=== PATIENT | female | born 1995 | race Caucasian/White ===

== ENCOUNTER → 2017-11-23 14:00 | Outpatient (CLI) | payer MEDICAID, SELFPAY ==
[2017-11-23 16:51] LABS: Group B Strep DNA By PCR Negative (Negative); Internal Control PASS; Probe Check PASS; Specimen Processing Control PASS
== END ==
PROVIDERS: Visit Provider Obstetrics & Gynecology
DX: Z36.85 Encounter for antenatal screening for Streptococcus B (principal)
CPT/HCPCS: 87081; 87653

== ENCOUNTER → 2017-11-27 17:17 | Outpatient (CLI) | payer MEDICAID, SELFPAY ==
[2017-11-27 18:02] LABS: Anion Gap 6 (5-15); BUN 8 mg/dL (7-18); BUN/Creat Ratio 14.2 RATIO (10-20); Calcium,Total 8.7 mg/dL (8.5-10.1); Chloride 106 mmol/L (98-107); Creatinine, Serum 0.56 mg/dL (0.55-1.02); EST Glomerular Filtration Rate 140 mL/min (>60); Est Glom Filt Rate - Afr Amer 169 mL/min (>60); Glucose 92 mg/dL (74-106); Potassium 4.1 mmol/L (3.5-5.1); Sodium Level 138 mmol/L (136-145)
== END ==
PROVIDERS: Visit Provider Obstetrics & Gynecology
DX: O99.89 Other specified diseases and conditions complicating pregnancy, childbirth and the puerperium (principal); R42 Dizziness and giddiness; Z3A.00 Weeks of gestation of pregnancy not specified
CPT/HCPCS: 80048

== ENCOUNTER 2017-12-12 17:20 | Outpatient (CLI) | payer MEDICAID, SELFPAY ==
[2017-12-12 17:42] VITALS: BMI 36.4
--- NOTE | 2017-12-13 07:52 | OB.TRI.NOTE ---
History of Present Illness Date of Service: 12/12/17 Was patient seen by the physician?: No Reason For Visit: FALL Date of Service: 12/12/17 Final TAMMY: 12/25/17 Final TAMMY Source: US <20 weeks Gestational age: 38 Weeks and 2 Days History of Present Illness: Had fall early today with resultant minor injury to abdomen. Some cramping. Good movmeent. No bleeding or signs of SROM. Home Medications Medication Instructions Recorded Pnv95/Ferrous Fumarate/FA 1 each PO DAILY 07/15/16 [ Formula] RX: Albuterol Inhaler [Ventolin 2 puff INHALATION PRN PRN 12/05/16 Hfa] Allergies No Known Allergies Allergy (Verified 07/15/16 22:26) Physical Exam General: Alert, Oriented x3, Cooperative, No apparent distress Cardiovascular: Regular rate, Regular Rhythm Lungs: Clear to auscultation, Normal air movement Abdomen: Soft, Non Tender, Non-Distended, Gravid, Appropriate for Gestational Age Extremities:: No edema Estimated gestational size: Appropriate for gestational size Presentation: Cephalic NST - FHR Rate Baby A Baseline: 130s Variability:: Moderate Accelerations:: 15 x 15 Decelerations:: None NST Reactive:: Yes, Appropriate for gestational age FHR Category:: Category I Uterine Activity:: none Impression/Plan Observed over 2 + hours with no signs of labor. NST reassuring. Warnings given. Will f/u in office as scheduled.
== END 2017-12-12 19:55 | disposition home or self-care (01) ==
LOC: WPOUT 17:26 → WP 17:27
PROVIDERS: Visit Provider Obstetrics & Gynecology
DX: O9A.213 Injury, poisoning and certain other consequences of external causes complicating pregnancy, third trimester (principal); S39.91XA Unspecified injury of abdomen, initial encounter; W19.XXXA Unspecified fall, initial encounter; Z3A.38 38 weeks gestation of pregnancy
CPT/HCPCS: 59025; 59050; 99218; G0378

== ENCOUNTER 2017-12-21 07:00 | Inpatient (IN) | payer MEDICAID, SELFPAY ==
[2017-12-21] VITALS (13 sets, daily range): BP systolic 94–113; BP diastolic 44–68; PULSE 70–100; RESP 16–18; TEMP 35.9–37; O2SAT 96–100; BMI 36.3
[2017-12-21] MEDS: Lactated Ringers 1,000 ML 50 ML IV ×2 (07:40→10:12)
--- NOTE | 2017-12-21 07:40 | NURSING ---
Tripped on car seat and fell on car seat
[2017-12-21 07:58] LABS: Hemoglobin 11.5 g/dl (12.0-15.0); Mean Corp Hgb Conc 33.8 g/gl (32-36); Mean Corpuscular Hgb 31.9 pg (27.0-32.0); Mean Corpuscular Volume 94.2 fL (81-99); Mean Platelet Vol. 9.4 fl (6.2-12.0); Platelet Count 235 K/mm3 (150-450); RBC Distribution Width CV 13.3 % (11.6-14.6); RBC Distribution Width SD 45.8 fl (35.1-43.9); Red Blood Count 3.61 M/mm3 (4.2-5.4); Scan Indicated on CBC? Y/N NO; White Blood Count 7.7 K/mm3 (4.4-11.0)
[2017-12-21] MEDS: Oxytocin 30 units/NS 500 ml 30 UNITS/500 ML IV.SOLN IV (08:08)
[2017-12-21 10:09] LABS: Prothrombin Time (Protime)PT. 13.2 SECONDS (11.7-14.9)
[2017-12-21] MEDS: 0.9% Saline Lock 10 ML Syringe IV ×2 (10:13→18:55)
[2017-12-21] MEDS: Terbutaline 1 MG/ML Vial 0.25 MG SC (14:27)
[2017-12-21] MEDS: Sodium Citrate/Citric Acid 30 ML UDC PO (15:29)
[2017-12-21] MEDS: Cefazolin 2 GM in 0.9% Normal Saline 100 ML IV (15:31)
[2017-12-21] MEDS: Oxytocin 30 units/NS 500 ml 30 UNITS/500 ML IV.SOLN 167 UNITS IV (16:35)
--- NOTE | 2017-12-21 17:14 | PCM.IMED.CSR ---
S-Zynzdiz-Kkxyzjumh PostOp Date of Procedure: 12/21/17 Primary Surgeon/Physician: Marleny Miguel accounting analyst: Sandra Hitchcock Pre-op Diagnosis: Breech Post-Op Diagnosis: Breech Surgery/Procedure Performed: Primary low transverse Section Description of Surgical Findings:: Normal uterus and tubes Estimated Blood Loss: 750 mL Specimens Removed: placenta Drain: Herbert to straight drain Type of Anesthesia: Spinal - Admit VTE Documentation VTE Present on Admission: No VTE Mechan Device Prophylaxis: SCD's VTE Pharm Prophylaxis ordered?: No
--- NOTE | 2017-12-21 17:17 | OP.PN_ITS ---
B-Duclptf-Ygnjbyaox PostOp Date of Procedure: 12/21/17 Primary Surgeon/Physician: Marleny Miguel electrician refinery: Sandra Hitchcock Pre-op Diagnosis: Breech Post-Op Diagnosis: Breech Surgery/Procedure Performed: Primary low transverse Section Description of Surgical Findings:: Normal uterus and tubes Estimated Blood Loss: 750 mL Specimens Removed: placenta Drain: Herbert to straight drain Type of Anesthesia: Spinal - Admit VTE Documentation VTE Present on Admission: No VTE Mechan Device Prophylaxis: SCD's VTE Pharm Prophylaxis ordered?: No
--- NOTE | 2017-12-21 17:19 | PLAC_PTH ---
PATIENT: ZOE CASTELLON LOC: WP U#:[id number] AGE/SX: 22/F ROOM: WP006 RE12/21/[address]: Dr. Marleny Everett MD : 1995 BED: 1 DIS: 12/24/2017 SPEC #: [id number] RECD: 12/21/17 20:13 STATUS: JAGRUTI GRISEL #: [id number] LENA: 12/21/17 17:[address]: Marleny Wong DEPT: SURGICAL PATHOLOGY RECD BY: Nilay Meadows ENTERED: 12/24/17 07:30 SP TYPE: PLACENTA OTHR DR: No Primary Care Phys Tissues: Placenta, NOS Procedures: Surgery Specimen Level V HEADER OPERATION: Primary section PRE-OP DIAGNOSIS: Breech prior, history of partial abruption at 17wga TISSUE SUBMITTED: Placenta MICROSCOPIC DIAGNOSIS Placenta: Placental disc - third trimester placenta (683 gm). Membranes ? focal circummarginate insertion. Umbilical cord - three blood vessels and no pathologic diagnosis. JUAN DANIEL:gwen 12/25/17 MICROSCOPIC DESCRIPTION Slides are reviewed. GROSS DESCRIPTION SPECIMEN: PLACENTA / CLINICAL INFORMATION: A. Weight: 3.23 gm B. Gestational Age: 39 weeks C. Sex: Female PLACENTAL WEIGHT (POST FIXATION): 683 gm PLACENTAL DIMENSIONS: 18 x 18 x 4 cm PLACENTAL SHAPE: Usual ovoid PLACENTAL WEIGHT FOR GESTATIONAL AGE: Over 99th percentile MEMBRANES - Present A. Insertion: The membranes are inserted in half the circumference of placenta 2 cm away from the margin. B. Site of rupture from edge: 9 cm from edge of placental disc C. Color of membrane: Aparicio-sy D. Abnormalities: None UMBILICAL CORD - Present A. Color: Aparicio-sy B. Insertion: Paracentral C. Length: 18 cm D. Diameter: 1 cm E. Number of vessels: Three F. Abnormalities: None PLACENTAL DISC - Present A. Color of surface: Aparicio-sy B. surface abnormalities: None C. Maternal cotyledons: Intact with minimal tears D. Attached retro placental clot: No clot E. Cut surface: Dark red and spongy F. Lesions: None G. Separate clot: Absent SECTIONS SUBMITTED: 1. Membrane roll 2. Cord, maternal end, placenta, surface with insertion of membrane away from the margin 3. Cord, end, placenta, surface with insertion of membrane away from the margin 4. Placental disc, and maternal surfaces 5. Placental disc, and maternal surfaces 6. Placental disc, and maternal surfaces SJ:gwen 12/24/17 TC:5 CPT: 38748
--- NOTE | 2017-12-21 17:21 | PCM.OB.CSR ---
- Problem List (1) Breech presentation of fetus Status: Acute Qualifiers: Fetus number: single or unspecified fetus Qualified Code(s): O32.1XX0 - Maternal care for breech presentation, not applicable or unspecified (2) delivery delivered Status: Acute Delivery Classification: Scheduled Final TAMMY: 12/25/17 Gestational age: 39 Weeks and 3 Days Indications: 22yo at 39 3/7wga who presented for scheduled elective induction. Fetus was breech however on admission ultrasound. Following counseling, she opted to proceed with attempted external cephaloversion, which ultimately was unsuccessful. I advised section with review of surgical risks, benefits, indications. Patient and her agreed to proceed. Indications for : Breech Description of Procedure: Normal uterus and tubes Female 3433g Amniotic Fluid Description: Clear Placenta Disposition: Routine to Lab Specimen(s) sent to pathology: placenta Drain: Herbert to straight drain Nuchal Cord Compression: With compression Cord Vessel Description: 3 Vessels Esitmated Blood Loss (ml): 750 Gender: Female (1 minute): 8 (5 minute): 9 Delayed cord clamping: Yes Pre-op Antibiotic Given: Ancef 2 grams IV x1 Pt instructed on risks of surgery: Bleeding, Anesthesia Risks, Infection, Need for Future C-Sections, Injury to surrounding structure(s) including bowel and bladder Complications: None - Admit VTE Documentation VTE Present on Admission: No VTE Mechan Device Prophylaxis: SCD's VTE Pharm Prophylaxis ordered?: No
--- NOTE | 2017-12-21 17:35 | OP.PCM_ITS ---
Problem List (1) Breech presentation of fetus Status: Acute Qualifiers: Fetus number: single or unspecified fetus Qualified Code(s): O32.1XX0 - Maternal care for breech presentation, not applicable or unspecified Report of Operation Date of Procedure: 12/21/17 Pre-Operative Diagnosis: breech presentation Post-Operative Diagnosis: breech presentation Surgery/Procedure Performed:: External cephaloversion Description of Surgical Findings:: Fetus - christin breech with GISSEL 12.7cm Type of Anesthesia:: None Special Medications: Terbutaline 0.25mg administered Estimated Blood Loss (mL): 0 Description of Procedure: Indications: 22yo admitted for scheduled induction of labor at 39 3/ 7wga was found to have breech presentation. Following discussion, she declined section and opted to proceed with external cephaloversion. Risks, benefits and indications of procedure were reviewed at length. Procedure: NST obtained and was reactive. US was performed confirming position with christin breech and back maternal left. Terbutaline was administered with mild tachyardia to 160s bpm. I performed a forward roll however the fetus reverted back to initial position following release of pressure. US was performed and the placenta appeared intact. FHR obtained x 1 minute was was normal. I subsequently performed a backwards roll with no sustained position. Again US followed by FHR monitoring was performed. FHR was with normal baseline and moderate variability. I attempted a third time, using a backwards roll however again was unsuccessful. US was again performed with placenta normal appearing and no evidence of abruption. The patient had tolerated the procedure well. NST was obtained and reactive. - Admit VTE Documentation VTE Present on Admission: No VTE Mechan Device Prophylaxis: SCD's VTE Pharm Prophylaxis ordered?: No
[2017-12-21] MEDS: Lactated Ringers 1,000 ML 100 ML IV ×2 (18:00→22:00)
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
[2017-12-21] MEDS: Nalbuphine 10 MG/ML Ampul 5 MG IV ×2 (18:52→19:01)
--- NOTE | 2017-12-21 19:00 | NURSING ---
normal sinus rhythm noted and strip printed
--- NOTE | 2017-12-21 19:03 | NURSING ---
states itching getting better
--- NOTE | 2017-12-21 19:03 | NURSING ---
Nubain 5 mg given for itching 1850 and 1900
[2017-12-21] MEDS: DiphenhydrAMINE 25 MG Capsule PO (23:03)
[2017-12-21] MEDS: Ketorolac 30 MG/ML Syringe IV (23:03)
[2017-12-22] VITALS (15 sets, daily range): BP systolic 91–108; BP diastolic 55–75; PULSE 69–82; RESP 16–20; TEMP 36.3–36.8; O2SAT 94–100
[2017-12-22] MEDS: DiphenhydrAMINE 25 MG Capsule PO (05:09)
[2017-12-22] MEDS: Ketorolac 30 MG/ML Syringe IV ×4 (05:09→23:01)
[2017-12-22 06:07] LABS: Hematocrit 31.5 % (37-47); Hemoglobin 10.4 g/dl (12.0-15.0); Mean Corpuscular Hgb 31.5 pg (27.0-32.0); Mean Corpuscular Volume 95.5 fL (81-99); Mean Platelet Vol. 8.8 fl (6.2-12.0); Platelet Count 187 K/mm3 (150-450); RBC Distribution Width CV 13.5 % (11.6-14.6); RBC Distribution Width SD 46.7 fl (35.1-43.9); White Blood Count 9.5 K/mm3 (4.4-11.0)
[2017-12-22 06:08] LABS: Scan Indicated on CBC? Y/N NO
--- NOTE | 2017-12-22 09:17 | PCM.PN.OB ---
Patient Problems: Active and Suspected Problems Breech presentation of fetus (Acute) delivery delivered (Acute) Subjective: Patient without complaints. Tolerating diet well. Denies flatus. Attempting to breast-feed. - Physical Exam Vital Signs Afebrile, vital signs stable Temp Pulse Resp BP Pulse Ox 98.1 F 81 16 91/55 L 97 12/22/17 04:30 12/22/17 04:30 12/22/17 05:30 12/22/17 04:30 12/22/17 05:30 Oxygen Delivery Method Room Air Weight: 246 lb Body Mass Index (BMI) 36.3 Intake and Output for Last 24 Hours 12/20/17 12/21/17 12/22/17 23:59 23:59 23:59 Intake Total 3950 / 3950 Output Total 4020 / 4020 600 / 600 Balance -70 / -70 -600 / -600 Laboratory Tests Past 24 Hrs 12/21/17 12/21/17 12/22/17 07:40 09:40 05:15 WBC 9.5 RBC 3.30 L Hgb 10.4 L Hct 31.5 L MCV 95.5 MCH 31.5 MCHC 33.0 RDW 13.5 RDW Differential 46.7 H Plt Count 187 MPV 8.8 PT 13.2 INR 1.0 APTT 25.0 Blood Type O POSITIVE Antibody Screen NEGATIVE Wound is clean, dry, covered with waterproof bandage. Good urine output. Hemoglobin okay. Medical Necessity - Tobacco Use Smoking Status: Former smoker Assessment/Plan Active and Suspected Problems Breech presentation of fetus (Acute) delivery delivered (Acute) Doing well. Continuing present care.
[2017-12-22] MEDS: 0.9% Saline Lock 10 ML Syringe IV ×3 (12:56→23:00)
[2017-12-23 01:50] VITALS: BP 111/69; PULSE 80; RESP 18; TEMP 36.5; O2SAT 97
[2017-12-23] MEDS: Ketorolac 30 MG/ML Syringe IV (05:21)
[2017-12-23] MEDS: 0.9% Saline Lock 10 ML Syringe IV (05:22)
--- NOTE | 2017-12-23 07:56 | PN.OBGYN_ITS ---
Patient Problems: Active and Suspected Problems Breech presentation of fetus (Acute) delivery delivered (Acute) Subjective: Patient without complaints. Tolerating diet well. Positive flatus. Breast- feeding going well. Desires to stay until tomorrow. - Physical Exam Vital Signs AF, VSS Temp Pulse Resp BP Pulse Ox 97.7 F L 80 18 111/69 97 12/23/17 01:50 12/23/17 01:50 12/23/17 01:50 12/23/17 01:50 12/23/17 01:50 Oxygen Delivery Method Room Air Weight: 246 lb Body Mass Index (BMI) 36.3 Intake and Output for Last 24 Hours 12/21/17 12/22/17 12/23/17 23:59 23:59 23:59 Intake Total 3950 / 3950 Output Total 4020 / 4020 600 / 600 900 / 900 Balance -70 / -70 -600 / -600 -900 / -900 Good urine output. Medical Necessity - Tobacco Use Smoking Status: Former smoker Assessment/Plan Active and Suspected Problems Breech presentation of fetus (Acute) delivery delivered (Acute) Doing well. Continuing present care.
[2017-12-23 08:40] VITALS: BP 104/77; PULSE 72; RESP 18; TEMP 36.6; O2SAT 96
[2017-12-23] MEDS: Senna/Docusate Sodium 1 Tablet PO (08:58)
[2017-12-23] MEDS: oxyCODONE 5 MG Tablet PO ×3 (08:58→22:44)
[2017-12-23] MEDS: Naproxen 250 MG Tablet PO ×2 (12:26→20:16)
[2017-12-23 12:47] LABS: Pathology Specimen OB SEE PATHOLOGY REPORT
[2017-12-23 15:00] VITALS: BP 166/60; PULSE 73; RESP 18; TEMP 36.7; O2SAT 98
[2017-12-23] MEDS: Acetaminophen 500 MG Tablet 1000 MG PO (18:22)
--- NOTE | 2017-12-23 18:50 | NURSING ---
In caring for Linda and Lesley over the last couple of days, my observation of Linda with Lesley is that she doing well caring for her while here. She is on top of feeding the - always feeding her without needing reminded. She has been very eager to get up and move after her , wanting to be able to be up caring for her infant. She has been very cautious with medication - when I told her one of her options was a narcotic, she appeared worried and stated that she knows that people can become addicted to it, and does not want to be one of those people. She is trying to use Tylenol and Aleve for pain control, and fill in with Oxycodone only when absolutely needed. While Edison was here, he was very attentive to both Linda's and Lesley's needs - walking with Linda, changing diapers for Linda. He was always very respectful while here, asking appropriate questions. They completed the CPR education prior to his return to rehab. Linda was tearful at his leaving.
[2017-12-23 20:10] VITALS: BP 107/48; PULSE 73; RESP 16; TEMP 36.5; O2SAT 96
[2017-12-24 02:45] VITALS: BP 116/80; PULSE 70; RESP 16; TEMP 36.3; O2SAT 99
[2017-12-24] MEDS: Acetaminophen 500 MG Tablet 1000 MG PO ×2 (02:57→13:53)
[2017-12-24] MEDS: oxyCODONE 5 MG Tablet PO ×2 (06:46→14:54)
[2017-12-24 08:10] VITALS: BP 110/78; PULSE 77; RESP 18; TEMP 36.6; O2SAT 97
--- NOTE | 2017-12-24 08:35 | PCM.PN.OB ---
Patient Problems: Active and Suspected Problems Breech presentation of fetus (Acute) delivery delivered (Acute) Subjective: No issues overnight. No bowel movement yet, but she is passing flatus. Pain is controlled with medication. Objective: AVSS - Physical Exam General: Alert, Oriented x3, Cooperative, No apparent distress HEENT: Atraumatic, Normocephalic Lungs: Normal air movement Cardiovascular: Regular rate, Regular Rhythm Abdomen: Soft, Non Tender, Non-Distended, - - Incision c/d/i and nontender, fundus firm and nontender Extremities: No edema, No Calf Tenderness Neurological: Neuro grossly intact Psych/Mental Status: Normal Affect, Appropriate, Alert and oriented to time, place, person, mood and affect Vital Signs Temp Pulse Resp BP Pulse Ox 97.8 F 77 18 110/78 97 12/24/17 08:10 12/24/17 08:10 12/24/17 08:10 12/24/17 08:10 12/24/17 08:10 Oxygen Delivery Method Room Air Weight: 111.584 kg Body Mass Index (BMI) 36.3 Intake and Output for Last 24 Hours 12/22/17 12/23/17 12/24/17 23:59 23:59 23:59 Output Total 600 / 600 900 / 900 Balance -600 / -600 -900 / -900 Medical Necessity - Tobacco Use Smoking Status: Former smoker Assessment/Plan Active and Suspected Problems Breech presentation of fetus (Acute) delivery delivered (Acute) 22yo POD#3 s/p PLTCS doing well. -Rh positive - -f/u in office in 1-2 weeks for incision check -d/c today
[2017-12-24] MEDS: Senna/Docusate Sodium 1 Tablet PO (10:02)
[2017-12-24] MEDS: Naproxen 250 MG Tablet PO (10:02)
--- NOTE | 2017-12-24 13:03 | PCM.DCCSEC ---
Discharge Diet: No Restrictions Discharge Activity: Return to Normal Activity, May not drive while taking narcotic pain medications., May Shower May resume sexual activity in: 6 weeks Lifting Restrictions: 10 lb Call your doctor if you observe: Fever of 101 or Higher, Inability to urinate, Inability to have a bowel movement, Using more than one pad per hour, Shortness of breath, Chest pain Suture Line Care: Avoid Pulling/Pushing Cleanse incision/area with: Soap & Water Additional Instructions: If you experience any of the following, contact your healthcare provider. Bleeding that soaks a pad every hour for 2 hours Fever 100.4 or higher Unrelieved incision or abdominal pain Swelling, redness, discharge or bleeding from your incision or episiotomy site Your incision begins to separate Problems urinating (including inability to urinate or burning while urinating). Visual changes Severe headache Flu-like symptoms Pain or redness in one of both of your breasts Pain, warmth, tenderness or swelling in your legs, especially the calf area Frequent nausea and vomiting Symptoms of depression or anxiety If you experience any of the following, call 911 or go to the nearest Emergency Room. Chest pain Problems breathing Seizure activity Partial or complete paralysis of a body part, slurred speech, weakness or drooping of the face, or a sudden inability to walk or hold your balance Allergies/Adverse Reactions: Allergies No Known Allergies Allergy (Verified 07/15/16 22:26) Medications to take at Discharge Pnv95/Ferrous Fumarate/FA [ Formula] 1 each PO DAILY 07/15/16 Albuterol Inhaler [Ventolin Hfa] 2 puff INHALATION PRN PRN 12/05/16 Docusate Sodium [Colace] 100 mg PO BID PRN PRN #60 cap 12/21/17 Ibuprofen [Motrin] 800 mg PO TID PRN PRN #30 tab 12/21/17 Oxycodone [Oxyir] 1 - 2 tab PO Q4H PRN 3 Days #28 tablet 12/21/17 The following prescriptions were given: Docusate Sodium [Colace] 100 mg PO BID PRN PRN #60 cap PRN Reason: Constipation Ibuprofen [Motrin] 800 mg PO TID PRN PRN #30 tab PRN Reason: Pain Oxycodone [Oxyir] 1 - 2 tab PO Q4H PRN 3 Days #28 tablet PRN Reason: Pain Follow-Up: Call to make an appointment with your doctor for an incision check in 1-2 weeks. You will also need a 6 week post- follow up appointment. Please Follow Up With: Marleny Miguel MD - incision check When: 1 week Please Follow Up With: Marleny Miguel MD - visit When: 6 weeks Primary Care Physician: Care Physician,No Primary [Primary Care Provider] -
--- NOTE | 2017-12-24 13:09 | DCINST_ITS ---
Discharge Diet: No Restrictions Discharge Activity: Return to Normal Activity, May not drive while taking narcotic pain medications., May Shower May resume sexual activity in: 6 weeks Lifting Restrictions: 10 lb Call your doctor if you observe: Fever of 101 or Higher, Inability to urinate, Inability to have a bowel movement, Using more than one pad per hour, Shortness of breath, Chest pain Suture Line Care: Avoid Pulling/Pushing Cleanse incision/area with: Soap & Water Additional Instructions: If you experience any of the following, contact your healthcare provider. * Bleeding that soaks a pad every hour for 2 hours * Fever 100.4 or higher * Unrelieved incision or abdominal pain * Swelling, redness, discharge or bleeding from your incision or episiotomy site * Your incision begins to separate * Problems urinating (including inability to urinate or burning while urinating) . * Visual changes * Severe headache * Flu-like symptoms * Pain or redness in one of both of your breasts * Pain, warmth, tenderness or swelling in your legs, especially the calf area * Frequent nausea and vomiting * Symptoms of depression or anxiety If you experience any of the following, call 911 or go to the nearest Emergency Room. * Chest pain * Problems breathing * Seizure activity * Partial or complete paralysis of a body part, slurred speech, weakness or drooping of the face, or a sudden inability to walk or hold your balance Allergies/Adverse Reactions: Allergies No Known Allergies Allergy (Verified 07/15/16 22:26) Medications to take at Discharge Pnv95/Ferrous Fumarate/FA [ Formula] 1 each PO DAILY 07/15/16 Albuterol Inhaler [Ventolin Hfa] 2 puff INHALATION PRN PRN 12/05/16 Docusate Sodium [Colace] 100 mg PO BID PRN PRN #60 cap 12/21/17 Ibuprofen [Motrin] 800 mg PO TID PRN PRN #30 tab 12/21/17 Oxycodone [Oxyir] 1 - 2 tab PO Q4H PRN 3 Days #28 tablet 12/21/17 The following prescriptions were given: Docusate Sodium [Colace] 100 mg PO BID PRN PRN #60 cap PRN Reason: Constipation Ibuprofen [Motrin] 800 mg PO TID PRN PRN #30 tab PRN Reason: Pain Oxycodone [Oxyir] 1 - 2 tab PO Q4H PRN 3 Days #28 tablet PRN Reason: Pain Follow-Up: Call to make an appointment with your doctor for an incision check in 1-2 weeks. You will also need a 6 week post- follow up appointment. Please Follow Up With: Marleny Miguel MD - incision check When: 1 week Please Follow Up With: Marleny Miguel MD - visit When: 6 weeks Primary Care Physician: Care Physician,No Primary [Primary Care Provider] -
[2017-12-24 13:34] VITALS: BP 112/86; PULSE 68; RESP 18; TEMP 36.4; O2SAT 96
--- NOTE | 2017-12-24 13:35 | CASEMGMT ---
Social Work - Labor and Delivery Unit Summary: Patient/mother of baby (MOB) and baby for discharge today. Chart reviewed and spoke with nursing staff, as well as with OBGYN. No concerns with mother/child interactions or bonding per nursing. Physician reports MOB has identified having a new place to go and live, other than the care home MOB had previously told this sign writer letterer or painter about on Sunday12-21-17. Attempted to meet with MOB at 1035, but MOB and baby sleeping. MOB asked this sign writer letterer or painter to come back later, as MOB trying to get rest while baby is sleeping. Met with MOB this afternoon. MOB reports to be doing okay, sore, but that delivery went better than MOB expected. MOB reports it was helpful for MOB to have FOB present for the , as would not have wanted to do it alone. Addressed with MOB home going needs/issues/concerns. Housing: MOB reports to have a friend of 4 years, Nemo Booth, who has an apartment in [place], [place], which Nemo is not currently residing in. MOB reports Nemo is allowing MOB to move self and MOBs children into this apartment, see how things go as to whether MOB would want to eventually make this a permanent residence or come back to [facility]. Address is reported to be [address] [place] [address], [address], [place], [place] Support system: MOB reports support is limited right now. MOBs mother is reported to be distant from MOB lately and not showing up for MOB when MOB asks for help. Father of baby (FOB)s mother just moved to [place] so is not a support. MOB describes tenuous relationships with other family members, that though FOB's brother has been helping with MOB's kids, FOB's brother tends to be a negative influence on FOB when FOB is around. MOB reports at this time FOB is a main support to MOB. MOB reports the friend who is giving MOB a place to stay, Nemo Booth, has agreed to come over for 3 hours every morning before Nemo goes to work. MOB reports FOB will start getting day passes once a week starting this weekend. As FOB s rehab is in [facility], FOB will be able to take the bus and spend almost the entire 8 hour pass with MOB, since MOB will be in [facility] as well. Mental Health: MOB reports to feel some stress, but denies any thoughts, plans, intent for self-harm. MOB reports intent to maintain mental health follow up. MOB denies drug use or abuse issues. Agency involvement: MOB reports to wish to keep agency involvement with [facility] going right now, at least until MOB decides whether this home in [facility] will be detention. MOB reports has been communicating with protocol officer and protocol officer is aware of MOBs plan to live out of town right now. Finances: MOB plans to continue with [employer] assistance program. MOB reports a positive of staying in [facility] will be that [employer] is connected with a job the rehab center linked FOB with. 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 (Note, MOB reports FOJo-Ann is allowed to be around own children, with current status of registering as a sex offender; no reported restrictions regarding contact with own children). MOB reports belief it may be harder for NELL to find a job in [facility] now with NELL's legal history. Transportation: MOB reports to have a friend Susan who will be transporting MOB home, and in fact this woman stopped in the room while hospice social worker was present. Susan offered for MOB and the kids to stay at [facility] home tonight if this will be easier. MOB reports that Susan has been helping NELL with transportation as well, getting FOB from the rehab center for pass to be at the hospital for of baby. MOB reports belief that will be able to get to medical follow ups for self and for baby. Assessment: MOB talkative this date, appearing to want to talk about stressors as evidenced by MOB sharing some details of stressors that this sign writer letterer or painter had not asked about. MOB teary eyed and showing outward emotions, voice shaky, when recounting some past stressors with family. MOB affect constricted. Eye contact normal. MOB was able to identify however, some positive coping skills (guided imagery, deep breathing, and some other mindfulness techniques). MOB reports has learned the importance of focusing on the positives, that finding something good in each situation helps MOB to cope. MOB also able to identify that has control over self, own choices, and care of children. MOB admits to feeling some stress, but reports to see positive in going to live in [facility] for now. MOB denies any thoughts, plans, intent for suicide currently or during this . MOB forward thinking, trying to find resources to care for self and family. MOB also reporting intent to continue with mental health counseling. MOB reports to have enough car seats for all of the children, to have enough sleep spaces, and that Nemo has agreed to help MOB get groceries for the apartment. MOB voiced acceptance at social work education, that children services will likely be making contact with MOB at some point in the future, to assure that all is going okay. Note, did observed MOB attend to baby when baby started to fuss. MOB was appropriate, gentle, gazed at baby, and talked to baby gently. Intervention: Provided MOB with Transportation resources through insurance and locally in [facility]. Provided [facility] resources list, housing program information, and a home visiting program in [facility] for Families (as although MOB is , father of the children is and so the children are , which may qualify family for services). MOB agrees to a Help Me Grow referral, which this sign writer letterer or painter submitted via the [facility] secure web based system. Call placed to Ancelmo at [facility], , extension [phone]. Message left to call this sign writer letterer or painter with update on MOBs intended disposition for this family. Plan: MOB discharging home with baby today, to be transported by friend Susan, with reported intent to stay at [facility] tonight, and then go to [place] tomorrow to stay for longer term, and until MOB decides if wants to stay in [facility] versus return to [place]. -ANUM Rueda, INSPECTOR [employer]ARE [employer]AC[employer]ITIES
--- NOTE | 2017-12-25 07:49 | PCM.DC.SUM ---
Discharge Date and Diagnosis Date of Admission: 12/21/17 Date of Discharge: 12/24/17 Hospital Course and Treatment Consultations 12/21/17 07:11 Consult: Anesthesia Routine Comment: Reason For Exam: labor Operations: - - section Procedures: - - Attempted external cephalic version Summary of Care Provided: The patient is a 22 year old 3 para 2 admitted at 39 + weeks gestational age for scheduled induction of labor. On admission however the fetus was in breech presentation. She was counseled regarding options and opted to proceed with attempted version. The version was subsequently attempted however unsuccessful. She was again counseled and agreed to proceed with section. The delivery was uncomplicated. Linda's post-operative course was unremarkable and she was discharged on post-operative day #3. Discharge Diet: No Restrictions Discharge Activity: Return to Normal Activity, May not drive while taking narcotic pain medications., May Shower May resume sexual activity in: 6 weeks Call your doctor if you observe: Fever of 101 or Higher, Inability to urinate, Inability to have a bowel movement, Using more than one pad per hour, Shortness of breath, Chest pain Suture Line Care: Avoid Pulling/Pushing Cleanse incision/area with: Soap & Water Home Medications: Medications to take at Discharge Pnv95/Ferrous Fumarate/FA [ Formula] 1 each PO DAILY 07/15/16 RX: Albuterol Inhaler [Ventolin Hfa] 2 puff INHALATION PRN PRN 12/05/16 Docusate Sodium [Colace] 100 mg PO BID PRN PRN #60 cap 12/21/17 RX: Ibuprofen [Motrin] 800 mg PO TID PRN PRN #30 tab 12/21/17 RX: Oxycodone [Oxyir] 1 - 2 tab PO Q4H PRN 3 Days #28 tablet 12/21/17 Following Prescrptions Were Given to Patient: Docusate Sodium [Colace] 100 mg PO BID PRN PRN #60 cap PRN Reason: Constipation RX: Ibuprofen [Motrin] 800 mg PO TID PRN PRN #30 tab PRN Reason: Pain RX: Oxycodone [Oxyir] 1 - 2 tab PO Q4H PRN 3 Days #28 tablet PRN Reason: Pain Primary Care Physician: Care Physician,No Primary [Primary Care Provider] - Please Follow Up With: Marleny Miguel MD - incision check When: 1 week Please Follow Up With: Marleny Miguel MD - visit When: 6 weeks Medical Necessity - Tobacco Use Smoking Status: Former smoker Meaningful Use Info Meaningful Use Diagnoses (Choose all that apply): None applicable
--- NOTE | 2017-12-25 07:52 | DS.PCM_ITS ---
Discharge Date and Diagnosis Date of Admission: 12/21/17 Date of Discharge: 12/24/17 Hospital Course and Treatment Consultations 12/21/17 07:11 Consult: Anesthesia Routine Comment: Reason For Exam: labor Operations: - - section Procedures: - - Attempted external cephalic version Summary of Care Provided: The patient is a 22 year old 3 para 2 admitted at 39 + weeks gestational age for scheduled induction of labor. On admission however the fetus was in breech presentation. She was counseled regarding options and opted to proceed with attempted version. The version was subsequently attempted however unsuccessful. She was again counseled and agreed to proceed with section. The delivery was uncomplicated. Linda's post- operative course was unremarkable and she was discharged on post-operative day # 3. Discharge Diet: No Restrictions Discharge Activity: Return to Normal Activity, May not drive while taking narcotic pain medications., May Shower May resume sexual activity in: 6 weeks Call your doctor if you observe: Fever of 101 or Higher, Inability to urinate, Inability to have a bowel movement, Using more than one pad per hour, Shortness of breath, Chest pain Suture Line Care: Avoid Pulling/Pushing Cleanse incision/area with: Soap & Water Home Medications: Medications to take at Discharge Pnv95/Ferrous Fumarate/FA [ Formula] 1 each PO DAILY 07/15/16 RX: Albuterol Inhaler [Ventolin Hfa] 2 puff INHALATION PRN PRN 12/05/16 Docusate Sodium [Colace] 100 mg PO BID PRN PRN #60 cap 12/21/17 RX: Ibuprofen [Motrin] 800 mg PO TID PRN PRN #30 tab 12/21/17 RX: Oxycodone [Oxyir] 1 - 2 tab PO Q4H PRN 3 Days #28 tablet 12/21/17 Following Prescrptions Were Given to Patient: Docusate Sodium [Colace] 100 mg PO BID PRN PRN #60 cap PRN Reason: Constipation RX: Ibuprofen [Motrin] 800 mg PO TID PRN PRN #30 tab PRN Reason: Pain RX: Oxycodone [Oxyir] 1 - 2 tab PO Q4H PRN 3 Days #28 tablet PRN Reason: Pain Primary Care Physician: Care Physician,No Primary [Primary Care Provider] - Please Follow Up With: Marleny Miguel MD - incision check When: 1 week Please Follow Up With: Marleny Miguel MD - visit When: 6 weeks Medical Necessity - Tobacco Use Smoking Status: Former smoker Meaningful Use Info Meaningful Use Diagnoses (Choose all that apply): None applicable
== END 2017-12-24 15:00 | disposition home or self-care (01) | DRG 370 ==
PROVIDERS: Admitting Provider Obstetrics & Gynecology; Visit Provider Obstetrics & Gynecology
DX: O32.1XX0 Maternal care for breech presentation, not applicable or unspecified (principal); O99.02 Anemia complicating childbirth; D64.9 Anemia, unspecified; O99.513 Diseases of the respiratory system complicating pregnancy, third trimester; J45.909 Unspecified asthma, uncomplicated; Z37.0 Single live birth; Z3A.39 39 weeks gestation of pregnancy; Z87.891 Personal history of nicotine dependence; Z59.0 Homelessness
CPT/HCPCS: 59025; 59050; 59412; 76815; 85027; 85610; 85730; 86850; 86900; 88307; 99218; J7120; A4216; G0378; J2405